=== PATIENT | male | born 1985 | race Caucasian/White ===

== ENCOUNTER 2017-08-09 17:07 | Emergency (ER) | payer OTHER ==
[~2017-08-09] VITALS: Ht 180.3 cm; Wt 122.7 kg
[2017-08-09 20:05] VITALS: BP 147/70
== END 2017-08-09 20:22 | disposition home or self-care (01) ==
LOC: EMS 17:07
DX: H10.9 Unspecified conjunctivitis (principal)
CPT/HCPCS: 99283